=== PATIENT | female | born 2000 | race Caucasian/White ===

== ENCOUNTER 2024-08-31 17:53 | Day surgery (SDC) | payer OTHER ==
[2024-08-31 18:10] VITALS: BMI 35.7
[2024-08-31] MEDS ORDERED: SUCCINYLCHOLINE CHLORIDE 200 MG/10 ML SYRINGE ONE (19:10)
[2024-08-31] MEDS: LACTATED RINGERS SOLUTION 1000 ML INFUS.BAG IV ONE (19:22)
[2024-08-31 19:41] LABS: ABSOLUTE IMMATURE GRANULOCYTES 0.05 x10^3/uL (0.0-0.031); BASOPHILS # 0.03 x10^3/uL (0.01-0.08); EOSINOPHIL % 0.3 % (0.7-5.8); EOSINOPHILS # 0.03 x10^3/uL (0.04-0.36); MCHC 31.3 g/dl (32.2-35.5); MEAN CELL VOLUME 87.3 fl (79.4-94.8); MEAN PLT VOLUME 10.9 fl (9.4-12.3); MONOCYTE # 0.81 x10^3/uL (0.24-0.86); MONOCYTE % 8.3 % (4.7-12.5); RDW 14.5 % (12.1-16.5)
[2024-08-31 20:24] LABS: CO2 28.0 mmol/L (21-32); GLUCOSE,RANDOM 91.0 mg/dL (74-106)
[2024-08-31 20:27] LABS: CREATININE 0.7 mg/dL (0.55-1.3)
[2024-08-31 20:39] LABS: INR 1.08 (0.83-1.09); INR 1.09 (0.83-1.09); PROTHROMBIN TIME (PATIENT) 11.8 SEC (9.7-13.0); PROTHROMBIN TIME (PATIENT) 11.9 SEC (9.7-13.0)
[2024-08-31 20:42] LABS: ACTIVATED PTT 23.1 SECONDS (25.2-36.5); ACTIVATED PTT 23.7 SECONDS (25.2-36.5)
[2024-08-31] MEDS ORDERED: GABAPENTIN 300 MG CAPSULE PO PRN (22:16)
[2024-08-31] MEDS ORDERED: ONDANSETRON 4 MG/2 ML VIAL IVPB PRN (22:17)
[2024-08-31] MEDS ORDERED: MIDAZOLAM HCL 2 MG/2 ML SINGLE DOSE VIAL ONE (22:24)
[2024-08-31] MEDS ORDERED: PROPOFOL 40 ML ONE (22:24)
[2024-08-31] MEDS ORDERED: ONDANSETRON 4 MG/2 ML VIAL ONE (22:25)
[2024-08-31] MEDS ORDERED: DEXAMETHASONE SOD PHOSPHATE 4 MG/1 ML VIAL ONE ×2 (22:25)
[2024-08-31] MEDS ORDERED: ONDANSETRON 4 MG/2 ML VIAL IVPUSH PRN (23:11)
[2024-09-01] MEDS: ACETAMINOPHEN 1000 MG/100 ML BAG IVPB ONE (00:31)
[2024-09-01] MEDS: LACTATED RINGERS SOLUTION 1,000 ML IV SCH ×2 (00:31)
[2024-09-01 00:56] LABS: HIV INTERPRETATION NEGATIVE (NEGATIVE)
[2024-09-01 00:59] LABS: HCV DIAGNOSTIC IN-HOUSE W/RFLX NON-REACTIVE (NONREACTIVE)
[2024-09-01] MEDS ORDERED: ACETAMINOPHEN INJECTION 100 ML ONE (01:23)
[2024-09-01] MEDS ORDERED: CEFAZOLIN 1 GM in DEXTROSE 5%-WATER - 50 ML IVPB SCH (02:00)
[2024-09-01 02:35] VITALS: RESP 18
[2024-09-01] MEDS: CEFAZOLIN 1 GM in DEXTROSE 5%-WATER - 50 ML IVPB SCH (05:18)
[2024-09-01] MEDS: FAMOTIDINE 40 MG TABLET PO SCH (09:18)
[2024-09-01 11:33] VITALS: BP 114/67; PULSE 100; TEMP 98.2
== END 2024-09-01 11:38 | disposition home or self-care (01) ==
LOC: JER 17:53 → JASUSAT 19:02 → J8W 20:26 → JASUSAT 09-01 11:38
PROVIDERS: ATTEND Plastic Surgery
PROC: 0W380ZZ Control Bleeding in Chest Wall, Open Approach (ICD-10-PCS; principal; 2024-08-31 21:00)
DX: L76.32 Postprocedural hematoma of skin and subcutaneous tissue following other procedure (principal)
CPT/HCPCS: 36415; 80048; 84702; 85025; 85610; 85730; 86803; 86850; 86900; 86901; 87389; 94010; 94760; 99285-25